=== PATIENT | male | born 1985 | race Caucasian/White ===

== ENCOUNTER 2021-06-27 16:45 | Emergency (ER) | payer BC ==
[~2021-06-27] VITALS: Ht 170.2 cm; Wt 140.6 kg
[2021-06-27] MEDS ORDERED: LIDOCAINE HCL 1% LOCAL INJ 20 ML VIAL INJ ONE (17:00)
[2021-06-27] MEDS ORDERED: CEPHALEXIN500 MG PO (17:38)
== END 2021-06-27 17:42 | disposition home or self-care (01) ==
LOC: ER 17:04
DX: S61.212A Laceration without foreign body of right middle finger without damage to nail, initial encounter (principal); W26.8XXA Contact with other sharp object(s), not elsewhere classified, initial encounter; Y93.89 Activity, other specified
CPT/HCPCS: 12002; 99282; J2001